=== PATIENT | male | born 2000 | race African-American/Black ===

== ENCOUNTER 2019-10-12 18:46 | Emergency (ER) | payer SELFPAY ==
[~2019-10-12] VITALS: Ht 182.9 cm; Wt 65.8 kg
== END 2019-10-12 19:22 | disposition home or self-care (01) ==
LOC: ER 18:46
DX: R50.9 Fever, unspecified (principal); R05 Cough; J02.0 Streptococcal pharyngitis
CPT/HCPCS: 99282